=== PATIENT | female | born 1970 | race Caucasian/White ===

== ENCOUNTER 2017-09-17 15:15 | Emergency (ER) | payer OTHER ==
[~2017-09-17] VITALS: Ht 162.6 cm; Wt 78.5 kg
[2017-09-17] MEDS ORDERED: LISINOPRIL10 MG PO (15:32)
[2017-09-17] MEDS ORDERED: IBUPROFEN 800800 M1 PO (15:43)
[2017-09-17] MEDS ORDERED: MEDROLDOSEPACK PO (15:50)
[2017-09-17 16:16] VITALS: BP 121/82
== END 2017-09-17 16:17 | disposition home or self-care (01) ==
LOC: M.ERS 15:15
DX: M71.22 Synovial cyst of popliteal space [Baker], left knee (principal); I10 Essential (primary) hypertension; Z98.890 Other specified postprocedural states; Z88.1 Allergy status to other antibiotic agents

== ENCOUNTER 2017-10-13 14:39 | Emergency (ER) | payer OTHER ==
[~2017-10-13] VITALS: Ht 162.6 cm; Wt 77.1 kg
[~2017-10-13 14:39] MED LIST: IBUPROFEN 800800 M1 PO; LISINOPRIL10 MG PO; MEDROLDOSEPACK PO
[2017-10-13 15:28] LABS: ABSOLUTE BASOPHILS 0.1 thou/uL (0.0-0.2); ABSOLUTE EOSINOPHILS 0.1 thou/uL (0.0-0.7); ABSOLUTE LYMPHOCYTES 1.2 thou/uL (0.8-5.3); ABSOLUTE MONOCYTES 0.4 thou/uL (0.0-1.2); ABSOLUTE NEUTROPHILS 4.2 thou/uL (1.6-8.1); BASOPHILS 0.9 %; EOSINOPHILS 1.5 %; HEMATOCRIT 42.6 % (37.0-47.0); HEMOGLOBIN 14.5 gm/dL (12.0-15.0); LYMPHOCYTES 20.1 %; MCH 32.1 pg (26.0-34.0); MCHC 34.2 g/dL (28.0-37.0); MCV 93.8 fL (80.0-100.0); MPV 9.4 fl. (7.2-11.1); NUCLEATED RBCS 0 /100WBC; PLATELET COUNT* 193 thou/uL (150-400); POLYS 71.5 %; RBC 4.54 mil/uL (4.20-5.00); WBC 5.8 thou/uL (4.0-11.0)
[2017-10-13 15:40] LABS: CALCIUM 9.6 mg/dL (8.5-10.1); CREATININE 0.8 mg/dL (0.6-1.3)
[2017-10-13 15:44] LABS: POTASSIUM 4.4 mmol/L (3.5-5.1)
[2017-10-13 15:45] LABS: ALBUMIN 3.5 g/dL (3.4-5.0); TOTAL BILIRUBIN 0.6 mg/dL (<0.1-1.0); TOTAL PROTEIN 7.4 g/dL (6.4-8.2)
[2017-10-13 15:47] LABS: URINE BILIRUBIN NEGATIVE (Negative); URINE BLOOD TRACE (Negative); URINE CLARITY CLEAR; URINE COLOR YELLOW; URINE GLUCOSE-RANDOM NEGATIVE (Negative); URINE KETONES 1+ (Negative); URINE LEUKOCYTES-REFLEX NEGATIVE (Negative); URINE NITRITE-REFLEX NEGATIVE (Negative); URINE PROTEIN NEGATIVE (Negative); URINE SPECIFIC GRAVITY >= 1.030 (1.005-1.030); URINE UROBILINOGEN 0.2 E.U./dl (0.2-1.0)
[2017-10-13 15:59] LABS: BACTERIA-REFLEX 1-9 Few /HPF (None Seen); CASTS None Seen /LPF (None Seen); CRYSTALS None Seen /LPF (None Seen); SQUAMOUS >10 Many /LPF (0-3); URINE RBC 3-10 Few /HPF (0-2); URINE WBC-REFLEX 0-5 Rare /HPF (0-5)
[2017-10-13] MEDS ORDERED: ZOFRAN4 MG PO (16:23)
[2017-10-13 16:57] VITALS: BP 130/81
== END 2017-10-13 16:58 | disposition home or self-care (01) ==
LOC: M.ERS 14:39
PROVIDERS: Nurse Practitioner Family
DX: R11.2 Nausea with vomiting, unspecified (principal); R19.7 Diarrhea, unspecified; I10 Essential (primary) hypertension; Z88.1 Allergy status to other antibiotic agents

== ENCOUNTER → 2018-01-10 | Outpatient (CLI) | payer OTHER ==
[~2018-01-10] MED LIST changes: +ZOFRAN4 MG PO
== END ==
LOC: M.RAD 14:35
DX: M71.22 Synovial cyst of popliteal space [Baker], left knee (principal)

== ENCOUNTER 2018-02-25 17:25 | Emergency (ER) | payer OTHER ==
[~2018-02-25] VITALS: Ht 162.6 cm; Wt 81.7 kg
[2018-02-25] MEDS ORDERED: FLONASE 0.05%50 MCG NASAL (17:34)
[2018-02-25] MEDS ORDERED: KEFLEX500 M1 PO (18:05)
[2018-02-25] MEDS ORDERED: PREDNISONE 5 MG5 MG PO (18:05)
[2018-02-25] MEDS ORDERED: ACETAMINOPHEN-1 EAC1 PO (18:06)
[2018-02-25 18:25] VITALS: BP 113/71
== END 2018-02-25 18:25 | disposition home or self-care (01) ==
LOC: M.ERS 17:25
DX: H66.93 Otitis media, unspecified, bilateral (principal); I10 Essential (primary) hypertension; F17.210 Nicotine dependence, cigarettes, uncomplicated; Z98.890 Other specified postprocedural states; Z88.1 Allergy status to other antibiotic agents

== ENCOUNTER 2018-05-10 16:11 | Emergency (ER) | payer OTHER ==
[~2018-05-10] VITALS: Ht 162.6 cm; Wt 81.7 kg
[~2018-05-10 16:11] MED LIST changes: +ACETAMINOPHEN-1 EAC1 PO; +FLONASE 0.05%50 MCG NASAL; +KEFLEX500 M1 PO; +PREDNISONE 5 MG5 MG PO
[2018-05-10] MEDS ORDERED: HYDROCHLOROTH12.5 M1 PO (16:24)
[2018-05-10] MEDS ORDERED: TESSALON PERLE100 MG PO (17:03)
[2018-05-10] MEDS ORDERED: PROAIR HFA8.5 GM INH (17:03)
[2018-05-10] MEDS ORDERED: AMOXICILLIN 50500 MG PO (17:03)
[2018-05-10] MEDS ORDERED: PROMETHAZINE V120 ML PO (17:03)
[2018-05-10] MEDS ORDERED: MEDROLDOSEPACK PO (17:03)
[2018-05-10] MEDS ORDERED: ACETAMINOPHEN-1 EAC1 PO (17:14)
[2018-05-10 17:17] VITALS: BP 132/90
== END 2018-05-10 17:18 | disposition home or self-care (01) ==
LOC: M.ERS 16:11
DX: H66.92 Otitis media, unspecified, left ear (principal); J11.1 Influenza due to unidentified influenza virus with other respiratory manifestations; I10 Essential (primary) hypertension; Z98.890 Other specified postprocedural states; F17.200 Nicotine dependence, unspecified, uncomplicated; Z88.8 Allergy status to other drugs, medicaments and biological substances

== ENCOUNTER 2018-06-02 17:25 | Emergency (ER) | payer OTHER ==
[~2018-06-02] VITALS: Ht 162.6 cm; Wt 81.7 kg
[~2018-06-02 17:25] MED LIST changes: +AMOXICILLIN 50500 MG PO; +HYDROCHLOROTH12.5 M1 PO; +PROAIR HFA8.5 GM INH; +PROMETHAZINE V120 ML PO; +TESSALON PERLE100 MG PO
[2018-06-02] MEDS ORDERED: FLONASE 0.05%50 MCG NASAL ×2 (18:03)
[2018-06-02 18:52] LABS: INFLUENZA A ANTIGEN None Detected (None Detect); INFLUENZA B ANTIGEN None Detected (None Detect)
[2018-06-02] MEDS ORDERED: PROMETH-CODEIN 65 ML PO (19:05)
[2018-06-02] MEDS ORDERED: MEDROLDOSEPACK PO (19:06)
[2018-06-02] MEDS ORDERED: ZPAK PO (19:06)
[2018-06-02 20:10] VITALS: BP 129/84
== END 2018-06-02 20:13 | disposition home or self-care (01) ==
LOC: M.ERS 17:25
PROVIDERS: Nurse Practitioner Family
DX: J20.9 Acute bronchitis, unspecified (principal); F17.200 Nicotine dependence, unspecified, uncomplicated; I10 Essential (primary) hypertension; Z98.890 Other specified postprocedural states; Z88.8 Allergy status to other drugs, medicaments and biological substances

== ENCOUNTER 2019-03-02 16:38 | Emergency (ER) | payer OTHER ==
[~2019-03-02] VITALS: Ht 162.6 cm; Wt 75.8 kg
[~2019-03-02 16:38] MED LIST changes: +PROMETH-CODEIN 65 ML PO; +ZPAK PO
[2019-03-02] MEDS ORDERED: LISINOPRIL-HCT1 EACH PO (16:44)
[2019-03-02 17:04] LABS: ABSOLUTE EOSINOPHILS 0.2 thou/uL (0.0-0.7); ABSOLUTE LYMPHOCYTES 2.1 thou/uL (0.8-5.3); ABSOLUTE MONOCYTES 0.4 thou/uL (0.0-1.2); ABSOLUTE NEUTROPHILS 3.7 thou/uL (1.6-8.1); BASOPHILS 0.8 %; EOSINOPHILS 2.8 %; HEMATOCRIT 42.3 % (37.0-47.0); HEMOGLOBIN 14.6 gm/dL (12.0-15.0); LYMPHOCYTES 32.4 %; MCH 32.9 pg (26.0-34.0); MCHC 34.5 g/dL (28.0-37.0); MCV 95.5 fL (80.0-100.0); MPV 9.6 fl. (7.2-11.1); NUCLEATED RBCS 0 /100WBC; PLATELET COUNT* 203 thou/uL (150-400); RBC 4.43 mil/uL (4.20-5.00); WBC 6.4 thou/uL (4.0-11.0)
[2019-03-02 17:16] LABS: CREATININE 0.8 mg/dL (0.6-1.3); POTASSIUM 3.5 mmol/L (3.5-5.1)
[2019-03-02 17:17] LABS: PROTIME 10.1 Seconds (9.20-11.50)
[2019-03-02 17:26] LABS: TOTAL BILIRUBIN 0.3 mg/dL (<0.1-1.0); TOTAL PROTEIN 7.5 g/dL (6.4-8.2)
[2019-03-02] MEDS ORDERED: PEPCID40 MG PO (18:18)
[2019-03-02] MEDS ORDERED: HYDROCODON-ACE1 EAC7 PO (18:55)
[2019-03-02] MEDS ORDERED: ZOFRAN ODT4 MG PO (18:55)
[2019-03-02 19:01] VITALS: BP 103/67
--- NOTE | 2019-03-03 10:30 | EKG ---
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1970 Requested By: Robbin Meyers Order Number: [id number] MD: Royce Pepper Measurements Intervals [place] Rate: 78 P: 51 DE: 148 QRS: 46 QRSD: 81 T: 47 QT: 369 QTc: 421 Interpretive Statements Sinus rhythm Abnormal R-wave progression, early transition Baseline wander in lead(s) I,III,aVL No previous ECG available for comparison Electronically Signed On 03-03-2019 10:30:11 INTERIOR DESIGN INSTRUCTOR by Royce Pepper [email or web address] <ELECTRONICALLY SIGNED> By: Royce Pepper MD, [facility] 03/03/19 1030 41 41 Royce Pepper MD, [facility] /EPI
== END 2019-03-02 19:01 | disposition home or self-care (01) ==
LOC: M.ERS 16:38
PROVIDERS: Emergency Medicine
DX: R07.89 Other chest pain (principal); I10 Essential (primary) hypertension; Z98.890 Other specified postprocedural states; Z88.8 Allergy status to other drugs, medicaments and biological substances

== ENCOUNTER 2019-08-17 17:54 | Emergency (ER) | payer OTHER ==
[~2019-08-17] VITALS: Ht 172.7 cm; Wt 76.2 kg
[~2019-08-17 17:54] MED LIST changes: +HYDROCODON-ACE1 EAC7 PO; +LISINOPRIL-HCT1 EACH PO; +PEPCID40 MG PO; +ZOFRAN ODT4 MG PO
[2019-08-17] MEDS ORDERED: FLEXERIL PO (19:02)
[2019-08-17] MEDS ORDERED: MELOXICAM15 MG PO (19:02)
[2019-08-17] MEDS ORDERED: DOXYCYCLINE 10100 MG PO (19:07)
[2019-08-17 19:28] LABS: ABSOLUTE EOSINOPHILS 0.1 thou/uL (0.0-0.7); ABSOLUTE LYMPHOCYTES 1.6 thou/uL (0.8-5.3); ABSOLUTE MONOCYTES 0.4 thou/uL (0.0-1.2); BASOPHILS 0.4 %; EOSINOPHILS 1.8 %; HEMATOCRIT 43.2 % (37.0-47.0); HEMOGLOBIN 15.1 gm/dL (12.0-15.0); LYMPHOCYTES 19.8 %; MCH 34.4 pg (26.0-34.0); MCHC 35.1 g/dL (28.0-37.0); MONOCYTES 4.8 %; MPV 9.9 fl. (7.2-11.1); NUCLEATED RBCS 0 /100WBC; PLATELET COUNT* 190 thou/uL (150-400); POLYS 73.2 %; RDW-CV 13.1 % (10.5-14.5); WBC 8.2 thou/uL (4.0-11.0)
[2019-08-17 19:36] LABS: CALCIUM 8.9 mg/dL (8.5-10.1); CREATININE 0.9 mg/dL (0.6-1.3)
[2019-08-17 19:41] LABS: ALBUMIN 3.6 g/dL (3.4-5.0); TOTAL BILIRUBIN 0.2 mg/dL (<0.1-1.0); TOTAL PROTEIN 7.4 g/dL (6.4-8.2)
[2019-08-17 21:24] VITALS: BP 135/70
--- NOTE | 2019-08-18 16:07 | EKG ---
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
== END 2019-08-17 21:25 | disposition home or self-care (01) ==
LOC: M.ERS 17:54
PROVIDERS: Physician Assistant
DX: M54.6 Pain in thoracic spine (principal); J98.11 Atelectasis

== ENCOUNTER 2019-12-13 13:29 | Emergency (ER) | payer OTHER ==
[~2019-12-13] VITALS: Ht 162.6 cm; Wt 79.4 kg
[~2019-12-13 13:29] MED LIST changes: +DOXYCYCLINE 10100 MG PO; +FLEXERIL PO; +MELOXICAM15 MG PO
[2019-12-13] MEDS ORDERED: FISH OIL 1,0001 EAC9 PO (13:44)
[2019-12-13] MEDS ORDERED: HYDROCHLOROTHIA25 M2 PO (13:44)
[2019-12-13 14:12] LABS: URINE BILIRUBIN NEGATIVE (Negative); URINE BLOOD NEGATIVE (Negative); URINE CLARITY CLEAR; URINE COLOR YELLOW; URINE GLUCOSE-RANDOM NEGATIVE (Negative); URINE KETONES NEGATIVE (Negative); URINE LEUKOCYTES-REFLEX NEGATIVE (Negative); URINE NITRITE-REFLEX NEGATIVE (Negative); URINE PROTEIN NEGATIVE (Negative); URINE SPECIFIC GRAVITY 1.025 (1.005-1.030); URINE UROBILINOGEN 0.2 E.U./dl (0.2-1.0)
[2019-12-13 14:22] LABS: ABSOLUTE EOSINOPHILS 0.1 thou/uL (0.0-0.7); ABSOLUTE LYMPHOCYTES 1.3 thou/uL (0.8-5.3); ABSOLUTE MONOCYTES 0.4 thou/uL (0.0-1.2); ABSOLUTE NEUTROPHILS 4.5 thou/uL (1.6-8.1); BASOPHILS 0.6 %; EOSINOPHILS 1.8 %; HEMATOCRIT 42.3 % (37.0-47.0); HEMOGLOBIN 14.8 gm/dL (12.0-15.0); LYMPHOCYTES 19.6 %; MCH 33.2 pg (26.0-34.0); MCV 94.8 fL (80.0-100.0); MONOCYTES 6.9 %; NUCLEATED RBCS 0 /100WBC; PLATELET COUNT* 213 thou/uL (150-400); POLYS 71.1 %; RBC 4.46 mil/uL (4.20-5.00); WBC 6.4 thou/uL (4.0-11.0)
[2019-12-13 14:31] LABS: CALCIUM 9.3 mg/dL (8.5-10.1); POTASSIUM 3.4 mmol/L (3.5-5.1)
[2019-12-13 14:35] LABS: ALBUMIN 4.4 g/dL (3.4-5.0); TOTAL BILIRUBIN 0.7 mg/dL (<0.1-1.0); TOTAL PROTEIN 7.7 g/dL (6.4-8.2)
[2019-12-13] MEDS ORDERED: CIPRO500 M1 PO (16:07)
[2019-12-13] MEDS ORDERED: BENTYL 20 MG TA20 M1 PO (16:07)
[2019-12-13 16:40] VITALS: BP 112/66
--- NOTE | 2019-12-14 10:47 | EKG ---
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 : 1970 Requested By: Selina Trevino Order Number: [id number] MD: Royce Pepper Measurements Intervals [place] Rate: 85 P: 37 [place]: 156 QRS: 17 QRSD: 77 T: 43 QT: 353 QTc: 420 Interpretive Statements Sinus rhythm artifact noted Baseline wander in lead(s) II,III,aVF Compared to ECG 08/17/2019 18:06:32 No significant changes Electronically Signed On 12-14-2019 10:47:17 CDT by Royce Pepper [email or web address] <ELECTRONICALLY SIGNED> By: Royce Pepper MD, [facility] 12/14/19 1047 1401 1401 Royce Pepper MD, [facility] /EPI
== END 2019-12-13 16:40 | disposition home or self-care (01) ==
LOC: M.ERS 13:29
PROVIDERS: Nurse Practitioner Family
DX: R19.7 Diarrhea, unspecified (principal); I10 Essential (primary) hypertension; Z98.890 Other specified postprocedural states; Z88.8 Allergy status to other drugs, medicaments and biological substances

== ENCOUNTER 2020-04-03 19:46 | Emergency (ER) | payer OTHER ==
[~2020-04-03] VITALS: Ht 162.6 cm; Wt 77.1 kg
[~2020-04-03 19:46] MED LIST changes: +BENTYL 20 MG TA20 M1 PO; +CIPRO500 M1 PO; +FISH OIL 1,0001 EAC9 PO; +HYDROCHLOROTHIA25 M2 PO
[2020-04-03 20:52] LABS: URINE BILIRUBIN NEGATIVE (Negative); URINE BLOOD TRACE (Negative); URINE CLARITY CLEAR; URINE COLOR YELLOW; URINE GLUCOSE-RANDOM NEGATIVE (Negative); URINE KETONES NEGATIVE (Negative); URINE LEUKOCYTES-REFLEX NEGATIVE (Negative); URINE NITRITE-REFLEX NEGATIVE (Negative); URINE PROTEIN NEGATIVE (Negative); URINE SPECIFIC GRAVITY <= 1.005 (1.005-1.030); URINE UROBILINOGEN 0.2 E.U./dl (0.2-1.0)
[2020-04-03 20:59] LABS: AMP/METHAMP Negative (Negative); BARBITURATES Negative (Negative); BENZODIAZEPINES Negative (Negative); COCAINE Negative (Negative); METHADONE Negative (Negative); OPIATES Negative (Negative); PCP Negative (Negative); THC Negative (Negative)
[2020-04-03 21:05] LABS: ABSOLUTE BASOPHILS 0.1 thou/uL (0.0-0.2); ABSOLUTE EOSINOPHILS 0.1 thou/uL (0.0-0.7); ABSOLUTE LYMPHOCYTES 1.9 thou/uL (0.8-5.3); ABSOLUTE MONOCYTES 0.4 thou/uL (0.0-1.2); ABSOLUTE NEUTROPHILS 4.5 thou/uL (1.6-8.1); BASOPHILS 0.9 %; EOSINOPHILS 2.1 %; HEMATOCRIT 42.4 % (37.0-47.0); HEMOGLOBIN 14.6 gm/dL (12.0-15.0); MCH 31.8 pg (26.0-34.0); MCHC 34.4 g/dL (28.0-37.0); MCV 92.4 fL (80.0-100.0); MONOCYTES 5.5 %; MPV 8.8 fl. (7.2-11.1); NUCLEATED RBCS 0 /100WBC; PLATELET COUNT* 213 thou/uL (150-400); POLYS 64.5 %; RBC 4.59 mil/uL (4.20-5.00)
[2020-04-03 21:13] LABS: CALCIUM 9.1 mg/dL (8.5-10.1); CREATININE 1.2 mg/dL (0.6-1.3); POTASSIUM 3.5 mmol/L (3.5-5.1)
[2020-04-03 21:17] LABS: TOTAL BILIRUBIN 0.3 mg/dL (<0.1-1.0); TOTAL PROTEIN 7.7 g/dL (6.4-8.2)
[2020-04-03] MEDS ORDERED: OMEPRAZOLE20 M2 PO (22:38)
[2020-04-03] MEDS ORDERED: CARAFATE 1 GM TA1 GM PO (22:38)
[2020-04-03 22:46] VITALS: BP 125/73
== END 2020-04-03 22:46 | disposition home or self-care (01) ==
LOC: M.ERS 19:46
PROVIDERS: Personal Emergency Response Attendant
DX: F10.129 Alcohol abuse with intoxication, unspecified (principal); K29.70 Gastritis, unspecified, without bleeding; I10 Essential (primary) hypertension; Z79.899 Other long term (current) drug therapy; Z88.8 Allergy status to other drugs, medicaments and biological substances; Z87.891 Personal history of nicotine dependence; Y90.6 Blood alcohol level of 120-199 mg/100 ml

== ENCOUNTER 2020-07-28 21:58 | Emergency (ER) | payer OTHER ==
[~2020-07-28] VITALS: Ht 162.6 cm; Wt 73.5 kg
[~2020-07-28 21:58] MED LIST changes: +CARAFATE 1 GM TA1 GM PO; +OMEPRAZOLE20 M2 PO
[2020-07-29 00:33] LABS: INFLUENZA A ANTIGEN Negative (Negative); INFLUENZA B ANTIGEN Negative (Negative)
[2020-07-29 00:53] VITALS: BP 128/70
== END 2020-07-29 00:54 | disposition home or self-care (01) ==
LOC: M.ERS 21:58
PROVIDERS: Emergency Medicine
DX: J06.9 Acute upper respiratory infection, unspecified (principal); Z20.822 Contact with and (suspected) exposure to COVID-19; I10 Essential (primary) hypertension; Z87.891 Personal history of nicotine dependence; Z88.8 Allergy status to other drugs, medicaments and biological substances

== ENCOUNTER 2021-04-21 14:13 | Emergency (ER) | payer OTHER ==
[~2021-04-21] VITALS: Ht 162.6 cm; Wt 81.7 kg
[2021-04-21] MEDS ORDERED: LEXAPRO 10 MG T10 M2 PO (14:22)
[2021-04-21] MEDS ORDERED: FLEXERIL PO (15:00)
[2021-04-21] MEDS ORDERED: HYDROCODON-ACE1 EAC7 PO (15:00)
[2021-04-21] MEDS ORDERED: DEXAMETHASONE 44 M1 PO (15:00)
[2021-04-21] MEDS ORDERED: VENTOLIN HFA 1818 GM INH (15:00)
[2021-04-21 15:26] VITALS: BP 153/99
== END 2021-04-21 15:28 | disposition home or self-care (01) ==
LOC: M.ERS 14:13
DX: U07.1 COVID-19 (principal); S29.011A Strain of muscle and tendon of front wall of thorax, initial encounter; I10 Essential (primary) hypertension; F41.9 Anxiety disorder, unspecified; F17.210 Nicotine dependence, cigarettes, uncomplicated; Z98.51 Tubal ligation status; Z79.899 Other long term (current) drug therapy; Z88.8 Allergy status to other drugs, medicaments and biological substances; X58.XXXA Exposure to other specified factors, initial encounter; Y93.89 Activity, other specified; Y92.89 Other specified places as the place of occurrence of the external cause; Y99.8 Other external cause status

== ENCOUNTER 2021-04-27 16:32 | Emergency (ER) | payer OTHER ==
[~2021-04-27] VITALS: Ht 162.6 cm; Wt 81.7 kg
[~2021-04-27 16:32] MED LIST changes: +DEXAMETHASONE 44 M1 PO; +LEXAPRO 10 MG T10 M2 PO; +VENTOLIN HFA 1818 GM INH
[2021-04-27] MEDS ORDERED: NEURONTIN100 MG PO (16:46)
[2021-04-27] MEDS ORDERED: ACYCLOVIR 800800 MG PO (16:46)
[2021-04-27 17:07] VITALS: BP 121/85
== END 2021-04-27 17:07 | disposition home or self-care (01) ==
LOC: M.ERS 16:32
DX: B02.9 Zoster without complications (principal); I10 Essential (primary) hypertension; F41.9 Anxiety disorder, unspecified; F17.210 Nicotine dependence, cigarettes, uncomplicated; Z98.51 Tubal ligation status; Z79.899 Other long term (current) drug therapy; Z86.16 Personal history of COVID-19; Z88.8 Allergy status to other drugs, medicaments and biological substances